=== PATIENT | female | born 1970 | race Caucasian/White ===

== ENCOUNTER 2016-12-24 07:37 | Emergency (ER) | payer OTHER ==
[2016-12-24 07:53] VITALS: BP 119/76; PULSE 105; RESP 18; TEMP 98; O2SAT 93
--- NOTE | 2016-12-24 08:11 | UCPHY ---
H & P Patient Type: New Chief Complaint Nursing Narrative: c/o SOB/ Chest congestion x 1 wk last night inc. SOB with coughing fits Time Seen by Provider: 12/24/16 07:56 HPI/ROS: CHIEF COMPLAINT: Cough HISTORY OF PRESENT ILLNESS: The patient is a 46-year-old female who comes to the Urgent Care along with her for cough. Both of them have had cough and mild runny nose for the last 4-5 days. She has not had a fever. No sore throat. No difficulty breathing. Chest pain, no GI symptoms. She classifies symptoms mild. REVIEW OF SYSTEMS: Constitutional: denies: chills, fever, recent illness, recent injury EENTM: denies: blurred vision, double vision, nose congestion Respiratory: See HPI Cardiac: denies: chest pain, irregular heart rate, lightheadedness, palpitations Gastrointestinal/Abdominal: denies: abdominal pain, diarrhea, nausea, vomiting, blood streaked stools Genitourinary: denies: dysuria, frequency, hematuria, pain Musculoskeletal: denies: joint pain, muscle pain Skin: denies: lesions, rash, jaundice, bruising Neurological: denies: headache, numbness, paresthesia, tingling, dizziness, weakness Hematologic/Lymphatic: denies: blood clots, easy bleeding, easy bruising Immunologic/allergic: denies: HIV/AIDS, transplant EXAM: GENERAL: Well-appearing, obese and in no acute distress. HEAD: Atraumatic, normocephalic. EYES: Pupils equal round and reactive to light, extraocular movements intact, sclera anicteric, conjunctiva are normal. ENT: TMs normal, nares patent, oropharynx clear without exudates. Moist mucous membranes. NECK: Normal range of motion, supple without lymphadenopathy or JVD. LUNGS: Breath sounds clear to auscultation bilaterally and equal. No wheezes rales or rhonchi. HEART: Regular rate and rhythm without murmurs, rubs or gallops. ABDOMEN: Soft, nontender, normoactive bowel sounds. No guarding, no rebound. No masses appreciated. BACK: No CVA tenderness, no spinal tenderness, step-offs or deformities EXTREMITIES: Normal range of motion, no pitting or edema. No clubbing or cyanosis. NEUROLOGICAL: Cranial nerves II through XII grossly intact. Normal speech, normal gait. 5/5 strength, normal movement in all extremities, normal sensation PSYCH: Normal mood, normal affect. SKIN: Warm, dry, normal turgor, no visible rashes or lesions. Source: Patient Exam Limitations: No limitations - Personal History LMP (Females 10-55): Hysterectomy Current Tetanus Diphtheria and Acellular Pertussis (TDAP): Yes - Medical/Surgical History Hx Asthma: No Hx Chronic Respiratory Disease: No Hx Diabetes: No Hx Cardiac Disease: No Hx Renal Disease: No Hx Cirrhosis: No Hx Alcoholism: No Hx HIV/AIDS: No Hx Splenectomy or Spleen Trauma: No Other PMH: NEW DIAGNOSIS UTERINE CANCER STAGE 3, HYST 12-12-15, TO BEGIN CHEMO NEXT WEEK - Family History Significant Family History: No pertinent family hx - Social History Smoking Status: Never smoked Alcohol Use: Sober Drug Use: None Constitutional: Initial Vital Signs Temperature (C) 36.6 C 12/24/16 07:50 Heart Rate 105 H 12/24/16 07:50 Respiratory Rate 18 12/24/16 07:50 Blood Pressure 119/76 12/24/16 07:50 O2 Sat (%) 93 12/24/16 07:50 O2 Delivery Mode Room Air Allergies/Adverse Reactions: No Known Allergies Allergy (Unverified 01/08/16 21:15) Home Medications: Medication Instructions Recorded Promethazine HCl/Codeine 5 ml PO Q4-6PRN PRN #90 ml 12/24/16 [Prometh-Codein 6.25-10 mg/5 ml] Medical Decision Making ED Course/Re-evaluation: Patient is well appearing. She has a mild dry cough. She has tried Mucinex with some relief. Will treat her with codeine cough suppressant and encouraged rest and hydration. Patient and her family agree with this plan. They declined further workup or testing. Differential Diagnosis: Partial list of the Differential diagnosis considered include but were not limited to; bronchitis, pneumonia, upper respiratory tract infection and although unlikely based on the history and physical exam, I also considered meningitis, sepsis, abscess, strep throat. I discussed these differential diagnoses and the plan with the patient as well as the usual and expected course. The patient understands that the diagnosis is provisional and that in medicine we are not always correct and that further workup is often warranted. Usual and customary warnings were given. All of the patient's questions were answered. The patient was instructed to return to the emergency department should the symptoms at all worsen or return, otherwise to followup with the physician as we discussed. Departure - Departure Disposition: Home, Routine, Self-Care Clinical Impression: Upper respiratory tract infection Qualifiers: URI type: unspecified viral URI Qualifier Code: (J06.9) Acute upper respiratory infection, unspecified Condition: Fair Instructions: Upper Respiratory Infection in Children (ED) Referrals: Yoan Oh MD [Primary Care Provider] - As per Instructions Prescriptions: Promethazine HCl/Codeine [Prometh-Codein 6.25-10 mg/5 ml] 5 ml PO Q4-6PRN PRN # 90 ml PRN Reason: Cough, Moderate - PQRS PQRS Measurement: Not applicable
== END 2016-12-24 08:16 | disposition home or self-care (01) ==
LOC: CED 07:37
DX: R05 Cough (principal); C55 Malignant neoplasm of uterus, part unspecified
CPT/HCPCS: 99204-PO; G0463-PO